=== PATIENT | male | born 1950 | race Caucasian/White ===

== ENCOUNTER → 2024-12-08 14:11 | Outpatient (REF) | payer OTHER, SELFPAY | LOC: RCS 14:11 | PROVIDERS: ATTENDING PHYSICIAN Physician Assistant Medical | DX: I49.9 Cardiac arrhythmia, unspecified (principal); I49.3 Ventricular premature depolarization | CPT/HCPCS: 93017 ==

== ENCOUNTER 2025-01-22 06:21 | Day surgery (SDC) | payer OTHER, SELFPAY | END 2025-01-22 14:16 | disposition home or self-care (01) | LOC: GI 06:21 | PROVIDERS: ATTENDING PHYSICIAN Internal Medicine | DX: Z12.11 Encounter for screening for malignant neoplasm of colon (principal); K57.30 Diverticulosis of large intestine without perforation or abscess without bleeding; K64.8 Other hemorrhoids; D12.0 Benign neoplasm of cecum; D12.2 Benign neoplasm of ascending colon; D12.8 Benign neoplasm of rectum | CPT/HCPCS: 45385; 45380; 88305 ==

== ENCOUNTER → 2025-01-30 16:15 | Outpatient (REF) | payer OTHER, SELFPAY | LOC: MRI 3T 16:15 | PROVIDERS: ATTENDING PHYSICIAN Radiology Radiation Oncology; PRIMARYCARE PHYSICIAN Physician Assistant Medical | DX: R97.21 Rising PSA following treatment for malignant neoplasm of prostate (principal); C61 Malignant neoplasm of prostate | CPT/HCPCS: 72197; A9575 ==

== ENCOUNTER → 2025-05-16 10:01 | Outpatient (REF) | payer OTHER, SELFPAY | LOC: RCS 10:01 | PROVIDERS: ATTENDING PHYSICIAN Internal Medicine Interventional Cardiology; FAMILY PHYSICIAN Physician Assistant Medical | DX: I10 Essential (primary) hypertension (principal); I49.3 Ventricular premature depolarization; I47.10 Supraventricular tachycardia, unspecified | CPT/HCPCS: 93306 ==